=== PATIENT | female | born 1985 | race Caucasian/White ===

== ENCOUNTER 2022-08-31 19:11 | Outpatient (CLI) | payer OTHER ==
--- NOTE | 2022-09-01 15:16 | Ultrasound Report ---
PROCEDURE: Pelvic w/Transvaginal INDICATIONS: ENDOMETRIOSIS TECHNIQUE: Real-time scanning was performed of the pelvic organs, with image documentation. Additional endovagi nal scanning was necessary due to incomplete visualization of the adnexal and endometrial structures by transabdominal scanning. COMPARISON: None. FINDINGS: Uterus: The uterine body measures 3.3 x 5.3 x 7.4 cm. Normal trilaminar appearance of the endometrium measuring up to 1 cm in maximum double-layer thickness. No uterine mass. Ovaries: Both ovaries normal in size. Multiple bilateral ovarian follicles and simple physiologic cys ts. Hyperechoic left ovarian mass measuring 1.8 x 1.4 x 2.4 cm is nonspecific. Other: No pathologic free abdominal or pelvic fluid. IMPRESSION: Nonspecific left ovarian mass, with mixed hyperechoic and isoechoic signal compared to the adjacent n ormal ovary. This could represent an endometrioma, although an ovarian dermoid or an atypical hemorrh agic cyst could cause a similar appearance. Follow-up in 4-6 which recommended to help differentiate. Reviewed by: Logan Patterson MD on 09/01/2022 3:15 PM PST Approved by: Logan Patterson MD on 09/01/2022 3:15 PM PST Station ID: [id number]
== END 2022-08-31 19:12 | disposition home or self-care (01) ==
LOC: DI 19:11
PROVIDERS: ATTEND Nurse Practitioner
DX: N80.9 Endometriosis, unspecified (principal); N83.9 Noninflammatory disorder of ovary, fallopian tube and broad ligament, unspecified

== ENCOUNTER 2022-09-12 16:29 | Outpatient (CLI) | payer OTHER ==
[2022-09-12 21:12] LABS: THYROID STIMULATING HORMONE 1.25 uIU/mL (0.34-5.60)
[2022-09-12 21:18] LABS: PROLACTIN 7.55 ng/mL
[2022-09-12 21:24] LABS: ESTIMATED AVERAGE GLUCOSE 94 mg/dL (70-100); HEMOGLOBIN A1c% 4.9 % (4.27-6.07)
[2022-09-12 21:40] LABS: FOLLICLE STIMULATING HORMONE 5.85 mIU/mL
[2022-09-12 21:41] LABS: LUTEINIZING HORMONE 4.51 mIU/mL
[2022-09-14 07:10] LABS: ESTRADIOL 46.2 pg/mL (.); PROGESTERONE 0.3 ng/mL (.); SEX HORM BINDING GLOB SERUM 79.3 nmol/L (24.6-122.0)
[2022-09-14 21:07] LABS: FREE TESTOSTERONE(DIRECT) 2.2 pg/mL (0.0-4.2)
== END 2022-09-12 16:30 | disposition home or self-care (01) ==
LOC: LAB.N 16:29
PROVIDERS: ATTEND Nurse Practitioner
DX: N80.9 Endometriosis, unspecified (principal); N92.6 Irregular menstruation, unspecified; Z87.42 Personal history of other diseases of the female genital tract
CPT/HCPCS: 36415; 82397; 82627; 82670; 83001; 83002; 83036; 84143; 84144; 84146; 84270; 84402; 84403; 84443